=== PATIENT | female | born 1995 | race Caucasian/White ===

== ENCOUNTER 2019-12-01 18:31 | Emergency (ER) | payer OTHER, SELFPAY ==
[2019-12-01 18:38] VITALS: BP 127/68; PULSE 96; RESP 16; TEMP 36.9; O2SAT 98; BMI 28.3
[2019-12-01 18:45] VITALS: BP 127/68; RESP 16; O2SAT 98
--- NOTE | 2019-12-01 18:54 | W.ED.FEMALGU ---
HPI - Female Genitourinary General: Chief complaint: Urogenital-Female Stated complaint: back pain right side Time Seen by Provider: 12/01/19 18:39 History of Present Illness: HPI Narrative: Patient complains about right GI kidney pain since yesterday. Had an untreated UTI 2 months ago released did not finish taking medication. Having some frequency urgency today. Says she just feels worse she is Surgite[place] with Dr. Sears and he sent her in to be evaluated make sure the does not have a possible obstructive pyelonephritis. Patient denies nausea fever chills. Also possibly might be starting her menses MD elicited complaint: dysuria and flank pain Onset (ago): day(s) (Yesterday) Location of symptoms: suprapubic and flank (Right side) Severity: moderate Female Urogenital Radiation: R Flank Severity scale (1-10): 6 Quality of pain: cramping and sharp Urinary symptoms: Difficulty Urinating and Flank Pain Relieving factors: none Associated symptoms: Reports no associated symptoms; Deny abdominal pain, headache(s) or nausea Review of Systems Narrative: Right flank pain with pain down into the pubic area right side. Const: Denies: fever, chills or body aches Eyes: Denies: change in vision or blurry vision ENMT: Denies: throat pain or nasal congestion Card: Denies: chest pain or shortness of breath on exertion Resp: Denies: shortness of breath, productive cough or non-productive cough GI: Denies: abdominal pain, nausea or vomiting : Reports: flank pain, difficulty urinating, urinary frequency and urinary urgency Musc: Denies: extremity pain Skin/Breast: Denies: rash Neuro: Denies: headache Psych: Denies: anxiety or depression Geoffrey/Lymph: Denies: easy bruising PFSH ED PFSH: Social History Smoking and tobacco status: never smoked Physical Exam Const: COMMON NORMALS: no apparent distress, average body habitus and oriented x3 HENMT: COMMON NORMALS: normocephalic HEAD & SCALP: normal to inspection and normocephalic FACE & SINUS: normal facial exam Eye: COMMON NORMALS: conjunctivae normal GENERAL EYE: normal appearance of both eyes CONJUNCTIVA: Yes conjunctivae normal Neck/C-Spine: COMMON NORMALS: no JVD Chest: COMMONS NORMALS: inspection of chest normal Resp: COMMON NORMALS: normal respiratory effort and clear to auscultation bilaterally AUSCULTATION: clear to auscultation bilaterally Cardio: COMMON NORMALS: no JVD, regular rate and regular rhythm RATE: regular rate RHYTHM: regular rhythm GI: COMMON NORMALS: normal to inspection, nondistended, normoactive bowel sounds : COMMON NORMALS: No no CVA tenderness BLADDER/KIDNEY EXAM: No no CVA tenderness and Yes CVA tenderness on the right Back/Pelvis: COMMON NORMALS: negative for no CVA tenderness GENERAL BACK: Yes CVA tenderness Extremity: COMMON NORMALS: normal to inspection and full ROM Neuro: COMMON NORMALS: oriented x3 Course Vital Signs: Vital signs: Vital Signs Temperature 98.5 F 12/01/19 18:38 Pulse Rate 94 12/01/19 19:30 Respiratory Rate 16 12/01/19 19:30 Blood Pressure 130/79 12/01/19 19:29 Pulse Oximetry 100 12/01/19 19:30 MDM - Female MDM Narrative: Medical decision making narrative: Discussed case with Dr. Hernández and we decide on going under CT of the kidney because Dr. Sears had desire that we talk to Dr. Alston at least what ascribe his told us. Patient and her friend talk to Dr. Sears after I had seen her and told her what was going on and he is good with the proceeding with the course of care without the CT at this moment based on what they told me. Lab Data: Labs: Lab Results 12/01/19 12/01/19 12/01/19 Range/Units 19:00 19:00 19:00 WBC 11.1 H (4.0-10.0) 10^3/ uL RBC 3.79 L (4.1-5.3) 10^6/u L Hgb 12.6 (11.5-15.3) g/dL Hct 38.7 (37.0-47.0) % MCV 102.1 H (81-99) fL MCH 33.2 (28.0-34.0) pg MCHC 32.6 (30.0-36.0) g/dL RDW 12.3 (12.1-15.1) % Plt Count 214 (130-400) 10^3/c mm MPV 9.9 (7.4-10.4) fL Neut % (Auto) 84.7 % Lymph % (Auto) 5.8 % [place] % (Auto) 8.7 % Eos % (Auto) 0.2 % Baso % (Auto) 0.3 % Neut # (Auto) 9.4 H (1.8-7.7) 10^3/u L Lymph # (Auto) 0.6 L (0.8-4.8) 10^3/u L [place] # (Auto) 1.0 H (0.2-0.9) 10^3/u L Eos # (Auto) 0.0 (0.0-0.8) 10^3/u L Baso # (Auto) 0.0 (0.0-0.1) 10^3/u L Nucleated RBC % (a uto) 0 % Nucleated RBCs # 0.0 /100WBC Sodium 134 L (136-145) mmol/L Potassium 3.5 (3.5-5.1) mmol/L Chloride 101 (98-107) mmol/L Carbon Dioxide 23 (22-29) mmol/L Anion Gap 13.5 (5-19) BUN 14 (6-20) mg/dL Creatinine 1.2 H (0.5-0.9) mg/dL GFR Calculation 55.7 L (90-130) mL/min Glucose 148 H (65-115) mg/dL Calculated Osmolal ity 277 L (285-295) mOsm/k g Lactate 1.2 (0.5-2.2) mmol/L Calcium 9.0 (8.5-10.5) mg/dL Total Bilirubin 0.6 (0.15-1.2) mg/dL AST 15 (0-32) U/L ALT 12 (0-33) U/L Alkaline Phosphata se 47 (35-105) IU/L Total Protein 6.7 (6.6-8.7) g/dL Albumin 4.0 (3.5-5.2) g/dL Globulin 2.7 (1.3-4.6) g/dL Lipase 14 (13-60) U/L HCG, Qual (Negative) Urine Color (Yellow) Urine Appearance (CLEAR) Urine pH (5-7) Ur Specific Gravit y (1.005-1.030) Urine Protein (Negative) Urine Glucose (UA) (Normal) Urine Ketones (Negative) Urine Blood (Negative) Urine Nitrate (Negative) Urine Bilirubin (NEGATIVE) Urine Urobilinogen (Negative) mg/dL Ur Leukocyte Pau ase (Negative) Urine RBC (0-2) /hpf Urine WBC (0-5) /hpf Ur Squamous Epith Cells (0-5) Urine Bacteria (NONE) 12/01/19 12/01/19 Range/Units 19:08 19:08 WBC (4.0-10.0) 10^3/ uL RBC (4.1-5.3) 10^6/u L Hgb (11.5-15.3) g/dL Hct (37.0-47.0) % MCV (81-99) fL MCH (28.0-34.0) pg MCHC (30.0-36.0) g/dL RDW (12.1-15.1) % Plt Count (130-400) 10^3/c mm MPV (7.4-10.4) fL Neut % (Auto) % Lymph % (Auto) % [place] % (Auto) % Eos % (Auto) % Baso % (Auto) % Neut # (Auto) (1.8-7.7) 10^3/u L Lymph # (Auto) (0.8-4.8) 10^3/u L [place] # (Auto) (0.2-0.9) 10^3/u L Eos # (Auto) (0.0-0.8) 10^3/u L Baso # (Auto) (0.0-0.1) 10^3/u L Nucleated RBC % (a uto) % Nucleated RBCs # /100WBC Sodium (136-145) mmol/L Potassium (3.5-5.1) mmol/L Chloride (98-107) mmol/L Carbon Dioxide (22-29) mmol/L Anion Gap (5-19) BUN (6-20) mg/dL Creatinine (0.5-0.9) mg/dL GFR Calculation (90-130) mL/min Glucose (65-115) mg/dL Calculated Osmolal ity (285-295) mOsm/k g Lactate (0.5-2.2) mmol/L Calcium (8.5-10.5) mg/dL Total Bilirubin (0.15-1.2) mg/dL AST (0-32) U/L ALT (0-33) U/L Alkaline Phosphata se (35-105) IU/L Total Protein (6.6-8.7) g/dL Albumin (3.5-5.2) g/dL Globulin (1.3-4.6) g/dL Lipase (13-60) U/L HCG, Qual Negative (Negative) Urine Color Yellow (Yellow) Urine Appearance Cloudy (CLEAR) Urine pH 5 (5-7) Ur Specific Gravit y 1.025 (1.005-1.030) Urine Protein 1+ H (Negative) Urine Glucose (UA) Norm (Normal) Urine Ketones 1+ H (Negative) Urine Blood 3+ H (Negative) Urine Nitrate Negative (Negative) Urine Bilirubin Neg (NEGATIVE) Urine Urobilinogen 1 H (Negative) mg/dL Ur Leukocyte Pau ase 2+ H (Negative) Urine RBC 25-40 H (0-2) /hpf Urine WBC >100 H (0-5) /hpf Ur Squamous Epith Cells 0-4 H (0-5) Urine Bacteria 1+ H (NONE) Coding Level of Care Code ED Scrap Stripper Hand for Chg Fwd Exam Comprehensive
--- NOTE | 2019-12-01 19:00 | PC.NURSE ---
report received from charge nurse due to day shift nurse not wanting to give report to night nurse.
[2019-12-01 19:05] LABS: Basophils % 0.3 %; Eosinophils % 0.2 %; Hematocrit 38.7 % (37.0-47.0); Hemoglobin 12.6 g/dL (11.5-15.3); Lymphocytes # 0.6 10^3/uL (0.8-4.8); Lymphocytes % 5.8 %; Mean Corpuscular HGB Conc 32.6 g/dL (30.0-36.0); Mean Corpuscular Hemoglobin 33.2 pg (28.0-34.0); Mean Corpuscular Volume 102.1 fL (81-99); Mean Platelet Volume 9.9 fL (7.4-10.4); Monocytes % 8.7 %; Neutrophils # 9.4 10^3/uL (1.8-7.7); Neutrophils % 84.7 %; Nucleated Red Blood Cells % 0 %; Platelet Count 214 10^3/cmm (130-400); Red Blood Count 3.79 10^6/uL (4.1-5.3); Red Cell Distribution Width 12.3 % (12.1-15.1); White Blood Count 11.1 10^3/uL (4.0-10.0)
[2019-12-01 19:24] LABS: Alanine Aminotransferase 12 U/L (0-33); Alkaline Phosphatase 47 IU/L (35-105); Anion Gap 13.5 (5-19); Aspartate Amino Transferase 15 U/L (0-32); Blood Urea Nitrogen 14 mg/dL (6-20); Carbon Dioxide 23 mmol/L (22-29); Chloride 101 mmol/L (98-107); Globulin 2.7 g/dL (1.3-4.6); Glomerular Filtration Rate 55.7 mL/min (90-130); Glucose 148 mg/dL (65-115); Lipase 14 U/L (13-60); Osmolality Calculated 277 mOsm/kg (285-295); Potassium 3.5 mmol/L (3.5-5.1); Sodium 134 mmol/L (136-145); Total Bilirubin 0.6 mg/dL (0.15-1.2); Total Protein 6.7 g/dL (6.6-8.7)
[2019-12-01 19:25] LABS: Lactate (Lactic Acid level) 1.2 mmol/L (0.5-2.2)
[2019-12-01] MEDS: ondansetron 2 mg/ML SDV 2 mL 4 MG IVP (19:26)
[2019-12-01] MEDS: ketorolac 30 mg/mL INJ IVP (19:26)
[2019-12-01] MEDS: sodium chloride 0.9% 1,000 ML 999 ML IV (19:26)
[2019-12-01 19:29] VITALS: BP 130/79; PULSE 93; RESP 14; O2SAT 98
[2019-12-01 19:30] VITALS: PULSE 94; RESP 16; O2SAT 100
[2019-12-01 19:31] LABS: Add Urine Microscopic? YES; Bilirubin Urine Neg (NEGATIVE); Blood Urine 3+ (Negative); Glucose Urine UA Norm (Normal); Ketones Urine 1+ (Negative); Leukocyte Esterase Urine 2+ (Negative); Nitrate Urine Negative (Negative); Protein Urine 1+ (Negative); RBC Urine 25-40 /hpf (0-2); Specific Gravity, Urine 1.025 (1.005-1.030); Urine Appearance Cloudy (CLEAR); Urine Color Yellow (Yellow); Urobilinogen Urine 1 mg/dL (Negative); pH Urine 5 (5-7)
[2019-12-01 19:32] LABS: Add Urine Culture? Yes; Bacteria Urine 1+; HCG Qualitative Urine. Negative (Negative); Squamous Epithelial Cell Urine 0-4 (0-5); WBC Urine >100 /hpf (0-5)
[2019-12-01] MEDS: cefTRIAXone 1,000 MG in sodium chloride 0.9% (plus) 50 ML 100 MG IV (20:01)
[2019-12-01 20:03] VITALS: BP 117/64; PULSE 98; RESP 15; O2SAT 99
[2019-12-01 20:40] VITALS: BP 117/71; BP 122/67; PULSE 91; RESP 16; O2SAT 98
== END 2019-12-01 20:45 | disposition home or self-care (01) ==
PROVIDERS: Emergency Provider Nurse Practitioner Family; Family Provider Family Medicine; PCP Family Medicine
DX: N23 Unspecified renal colic (principal); R35.0 Frequency of micturition; R39.15 Urgency of urination; R39.198 Other difficulties with micturition; R30.0 Dysuria
CPT/HCPCS: 12345; 80053; 81001; 81025; 83605; 83690; 85025; 87077; 87086; 87186; 96365; 96375; 99283; A9270; J0696; J1885; J2405; J7030

== ENCOUNTER → 2020-01-29 16:21 | Outpatient (BNVA) | payer OTHER, SELFPAY | PROVIDERS: Family Provider Family Medicine; PCP Family Medicine; Visit Provider Obstetrics & Gynecology | DX: Z78.9 Other specified health status (principal); Z11.3 Encounter for screening for infections with a predominantly sexual mode of transmission; R85.612 Low grade squamous intraepithelial lesion on cytologic smear of anus (LGSIL); Z12.4 Encounter for screening for malignant neoplasm of cervix; R87.619 Unspecified abnormal cytological findings in specimens from cervix uteri | CPT/HCPCS: 87491; 87591; 87661; 88175 ==

== ENCOUNTER → 2021-09-06 16:22 | Outpatient (BNVA) | payer OTHER, SELFPAY | PROVIDERS: Family Provider Family Medicine; PCP Family Medicine; Visit Provider Obstetrics & Gynecology | DX: R10.2 Pelvic and perineal pain (principal); N83.201 Unspecified ovarian cyst, right side; Z90.721 Acquired absence of ovaries, unilateral | CPT/HCPCS: 76830 ==

== ENCOUNTER → 2021-09-22 13:20 | Outpatient (BNVA) | payer OTHER, SELFPAY | PROVIDERS: Family Provider Family Medicine; PCP Family Medicine; Visit Provider Family Medicine | DX: Z20.828 Contact with and (suspected) exposure to other viral communicable diseases (principal) | CPT/HCPCS: 87635 ==

== ENCOUNTER → 2021-11-15 14:26 | Outpatient (BNVA) | payer OTHER, SELFPAY | PROVIDERS: Family Provider Family Medicine; PCP Family Medicine; Visit Provider Obstetrics & Gynecology | DX: Z30.46 Encounter for surveillance of implantable subdermal contraceptive (principal); R87.612 Low grade squamous intraepithelial lesion on cytologic smear of cervix (LGSIL) | CPT/HCPCS: 81025; 88305 ==